=== PATIENT | female | born 1985 | race Caucasian/White ===

== ENCOUNTER 2016-06-01 18:14 | Emergency (ER) | payer BC ==
[~2016-06-01] VITALS: Wt 94.0 kg
[2016-06-01] MEDS ORDERED: IBUP-1542 PO (19:12)
[2016-06-01] MEDS ORDERED: CETI10CA PO (19:12)
[2016-06-01] MEDS ORDERED: GUAI120S26 PO (19:12)
[2016-06-01] MEDS ORDERED: SIMV5TAB50 PO (19:16)
[2016-06-01] MEDS ORDERED: [UNRECOGNIZED DRUG - OTHER] (19:16)
[2016-06-01] MEDS ORDERED: PROP10TA6 PO (19:16)
[2016-06-01] MEDS ORDERED: TRUV PO (19:16)
--- NOTE | 2016-06-01 19:18 | ERD ---
ER Documentation Chief Complaint Date/Time DATE: 06/01/16 TIME: 19:14 Chief Complaint COUGH, CONGESTION, EAR PAIN, HIV POSITIVE HPI 30-year-old female presents here in emergency department for complaints of cough runny nose, nasal congestion, bilateral ear pain for 3 days. Patient has been having dry cough, does not cough up any phlegm or blood. Patient does not have any shortness of breath or wheezing. Patient has been having runny nose, nasal congestion clear nasal discharge. Patient does not have any sore throat. Patient does not have any shortness of breath. Patient doesn't have any sick contacts. ROS All systems reviewed and are negative except as per history of present illness. Medications Home Meds Active Scripts Ibuprofen* (Motrin*) 600 Mg Tab, 600 MG PO Q6H Y for PAIN AND OR ELEVATED TEMP, #30 TAB Prov:HELENA GONZALEZ [employer] 06/01/16 Cetirizine Hcl* (Zyrtec*) 10 Mg Capsule, 10 MG PO DAILY, #30 TAB.CHEW Prov:HELENA GONZALEZ NP 06/01/16 Bajningagit-E-Gmwcegrfdc Hb* (Guaifenesin* DM Syrup) 120 Ml Syrup, 10 ML PO Q4H Y for COUGH, #120 ML Prov:HELENA GONZALEZ NP 06/01/16 Reported Medications Simvastatin* (Simvastatin*) Unknown Strength Tablet, PO QHS, #30 TAB 06/01/16 Propranolol Hcl* (Propranolol Hcl*) Unknown Strength Tablet, PO QID, TAB 06/01/16 Emtricitabine-Tenofovir* (Truvada*) Unknown Strength Tab, PO DAILY, TAB 06/01/16 [syntress] Unknown Strength No Conflict Check 06/01/16 Allergies Allergies: Coded Allergies: acetaminophen (Verified Allergy, Mild, 06/01/16) hydrocodone (Verified Allergy, Mild, 06/01/16) risperidone (Verified Allergy, Mild, 06/01/16) tramadol (Verified Allergy, Mild, 06/01/16) PMhx/Soc Hx Cardiac Disorders: Yes (HIGH CHOLESTEROL, ) Hx Miscellaneous Medical Probl: Yes (POLYCYSTIC OVARIAN SYNDROME, HIV POSITIVE ; GASTRIC ULCER) Hx Alcohol Use: No Hx Substance Use: No Hx Tobacco Use: No Smoking Status: Never smoker FmHx Family History: diabetes Physical Exam Vitals Vital Signs Date Time Temp Pulse Resp B/P Pulse Ox O2 Delivery O2 Flow Rate FiO2 06/01/16 18:19 96.9 105 18 139/96 99 Physical Exam GENERAL: The patient is well developed and appropriate for usual state of health, in no apparent distress. HEENT: Atraumatic. Ears: Normal tympanic membrane, no erythema or bulging. No ear canal swelling. No ear discharge. Nose: Erythematous nasal turbinates with clear nasal discharge. Throat: oropharynx are erythematous with postnasal drip. No tonsillar swelling or tonsillar exudates. No lymphadenopathy. CHEST: Clear to auscultation bilaterally. There are no rales, wheezes or rhonchi. HEART: Regular rate and rhythm. No murmurs, clicks, rubs or gallops. No S3 or S4. ABDOMEN: Soft, nontender and nondistended. Good bowel sounds. No rebound or guarding. No gross peritonitis. No gross organomegaly or masses. No Avery sign or McBurney point tenderness. BACK: No midline or flank tenderness. EXTREMITIES: Equal pulses bilaterally. There is no peripheral clubbing, cyanosis or edema. No focal swelling or erythema. Full range of motion. Grossly neurovascularly intact. NEURO: Alert and oriented. Cranial nerves 2-12 intact. Motor strength in all 4 extremities with 5/5 strength. Sensation grossly intact. Normal speech and gait. SKIN: There is no apparent rash or petechia. The skin is warm and dry. HEMATOLOGIC AND LYMPHATIC: There is no evidence of excessive bruising or lymphedema. No gross cervical, axillary, or inguinal lymphadenopathy. Procedures/MDM Medical Decision Making: Patient symptoms are most likely consistent with upper respiratory tract infection, which viral in origin. There is low suspicion for Pneumonia at this time since patients lungs sounds are clear, patient O2 saturation is normal and patient doesnt show any respiratory distress. Radiology exam is not indicated at this time. There is low suspicion for other cardiopulmonary emergencies at this time such as CHF, Pulmonary Embolism, Pneumothorax, Aortic Aneurysm or any other cardiopulmonary emergencies at this time. There is low suspicion for sepsis. Patient appears well and is hemodynamically stable. Patient does not have any fever. Disposition: Home. Condition: Stable Prescriptions: Guaifenesin DM, Zyrtec, ibuprofen Instructions: Patient is advised to take medications as prescribed. Patient is advised to rest. Patient advised to increase fluid intake, do humidifier at home and if possible, do salt water gargles. Patient is advised that if symptoms are worse, shortness of breath, uncontrolled fever, stridor, vomiting, worst signs and symptoms to return to emergency department immediately. Otherwise, patient is advised to follow up with primary doctor in 5-7 days. Departure Diagnosis: Primary Impression: URI (upper respiratory infection) URI type: unspecified viral URI Qualified Code: J06.9 - Viral upper respiratory tract infection Condition: Stable Patient Instructions: Uri, Viral, No Abx (Adult) HELENA GONZALEZ NP Jun 01, 2016 19:18
== END 2016-06-01 19:25 | disposition home or self-care (01) ==
LOC: FTE 18:14
DX: J06.9 Acute upper respiratory infection, unspecified (principal)
CPT/HCPCS: 99283